=== PATIENT | male | born 1965 | race Caucasian/White ===

== ENCOUNTER 2017-07-29 08:32 | Emergency (ER) | payer MEDICARE, MEDICAID ==
[2017-07-29 08:44] VITALS: BP 151/92
--- NOTE | 2017-07-29 09:32 | RADIOLOGY REPORT (SQ) ---
EXAM DESCRIPTION: FOOT LEFT COMPLETE COMPLETED DATE/TIME: 07/29/2017 9:21 am REASON FOR STUDY: foot injury/pain COMPARISON: None. NUMBER OF VIEWS: Three views. TECHNIQUE: AP, lateral and oblique radiographic images acquired of the left foot. LIMITATIONS: None. FINDINGS: MINERALIZATION: Normal. BONES: No acute fracture or dislocation. Extensive hardware in the calcaneus. Degenerative changes in the midfoot with sclerosis and osteophytes. No worrisome bone lesions. JOINTS: No effusions. SOFT TISSUES: No soft tissue swelling. No foreign body. OTHER: No other significant finding. IMPRESSION: SURGICAL CHANGES IN THE CALCANEUS WITH HARDWARE. DEGENERATIVE CHANGES IN THE MIDFOOT. NO ACUTE FINDINGS. TECHNICAL DOCUMENTATION: JOB ID: [id number] [employer]- All Rights Reserved
[2017-07-29] MEDS ORDERED: HYDROCODONE/ACETAMINOPHEN 5-325 MG 6 TAB/DSPK PO PRN (09:45)
--- NOTE | 2017-07-29 09:45 | ER Document Report ---
ED Extremity Problem, Lower - General Chief Complaint: Foot Injury Stated Complaint: LEFT FOOT PAIN Time Seen by Provider: 07/29/17 08:56 Mode of Arrival: Ambulatory Information source: Patient Notes: Patient is a 52-year-old male with chronic left foot pain who presents to the ER today for increased left heel pain after going up and down ladders over the past couple of days to hang [employer] decorations. Patient is very concerned that he may have messed up the hardware in his left foot from an old calcaneus fracture. He states that it hurts all the time, but worse with weightbearing. He denies any numbness or tingling. TRAVEL OUTSIDE OF THE [place] IN LAST 30 DAYS: No - Related Data Allergies/Adverse Reactions: No Known Allergies Allergy (Verified 07/29/17 08:39) Home Medications: Current Home Medications Benztropine Mesylate 1 mg PO BID 07/29/17 [History] Diclofenac Sodium 75 mg PO DAILY 07/29/17 [History] Lisinopril 5 mg PO DAILY 07/29/17 [History] Risperidone [Risperdal] 3 mg PO BID 07/29/17 [History] Past Medical History - General Information source: Patient - Social History Smoking Status: Unknown if Ever Smoked Family History: Arthritis, Hypertension, Malignancy Patient has suicidal ideation: No Patient has homicidal ideation: No - Past Medical History Cardiac Medical History: Reports: Hx Hypertension Renal/ Medical History: Denies: Hx Peritoneal Dialysis Musculoskeltal Medical History: Reports Hx Musculoskeletal Deformity, Reports Hx Musculoskeletal Trauma Psychiatric Medical History: Reports: Hx Bipolar Disorder Past Surgical History: Reports: Hx Orthopedic Surgery - Back discectomy 2 many years ago - Immunizations Immunizations up to date: Yes Hx Diphtheria, Pertussis, Tetanus Vaccination: Yes Review of Systems - Review of Systems Constitutional: No symptoms reported EENT: No symptoms reported Cardiovascular: No symptoms reported Respiratory: No symptoms reported Gastrointestinal: No symptoms reported Genitourinary: No symptoms reported Male Genitourinary: No symptoms reported Musculoskeletal: See HPI Skin: No symptoms reported Hematologic/Lymphatic: No symptoms reported Neurological/Psychological: No symptoms reported Physical Exam - Vital signs Vitals: Temp Pulse Resp BP Pulse Ox 97.8 F 75 16 151/92 H 99 07/29/17 08:42 07/29/17 08:42 07/29/17 08:42 07/29/17 08:42 07/29/17 08:42 - Notes Notes: PHYSICAL EXAMINATION: GENERAL: Well-appearing and in no acute distress. HEAD: Atraumatic, normocephalic. EYES: Pupils equal round and reactive to light, extraocular movements intact, sclera anicteric, conjunctiva are normal. NECK: Normal range of motion, supple without lymphadenopathy LUNGS: CTAB and equal. No wheezes rales or rhonchi. HEART: Regular rate and rhythm without murmurs EXTREMITIES: old scar to lateral left calcaneous, tender to palpation, otherwise Normal range of motion, no pitting edema. No cyanosis. NEUROLOGICAL: Cranial nerves grossly intact. Normal sensory/motor exams. PSYCH: Normal mood, normal affect. SKIN: Warm, Dry, normal turgor, no rashes or lesions noted Course - Re-evaluation Re-evalutation: 07/29/17 12:03 X-ray of the left foot reveals old hardware intact, no acute pathology. Patient was advised to rest the foot. - Vital Signs Vital signs: Temp Pulse Resp BP Pulse Ox 97.8 F 75 16 151/92 H 99 07/29/17 08:42 07/29/17 08:42 07/29/17 08:42 07/29/17 08:42 07/29/17 08:42 Discharge - Discharge Clinical Impression: Left foot pain Condition: Stable Disposition: HOME, SELF-CARE Additional Instructions: Return immediately for any new or worsening symptoms. Follow up with primary care provider, call tomorrow to make followup appointment. Referrals: ALBINO BARRY PA-C [Primary Care Provider] - Follow up as needed
== END 2017-07-29 10:51 | disposition home or self-care (01) ==
LOC: ER 08:32
DX: M79.672 Pain in left foot (principal); G89.29 Other chronic pain; Z98.890 Other specified postprocedural states; I10 Essential (primary) hypertension
CPT/HCPCS: 99283; 73630; A9270

== ENCOUNTER 2018-10-08 09:24 | Emergency (ER) | payer MEDICARE, MEDICAID ==
[2018-10-08 09:42] VITALS: BP 160/92
--- NOTE | 2018-10-08 10:11 | ER Document Report ---
HPI - HPI Patient complains to provider of: Low back pain Time Seen by Provider: 10/08/18 09:39 Onset: Other - A few days Onset/Duration: Persistent Quality of pain: Achy Severity: Severe Pain Level: 4 Context: She presents emergency department with complaints of low back pain. Patient reports he has been helping a friend make a shed. He has been bending over cutting lifting. He reports his back started hurting him for a few days. Denie s urinary bowel incontinence or retention. Reports history of 2 back surgeries. Denies numbness and tingling. Denies fever vomiting diarrhea. He also reports he has history of hep C and is now currently taking a new medication. Denies IV drug use denies trauma. Associated Symptoms: None Exacerbated by: Denies Relieved by: Denies Similar symptoms previously: Yes Recently seen / treated by doctor: No Past Medical History - General Information source: Patient - Social History Smoking Status: Current Every Day Smoker Cigarette use (# per day): Yes Chew tobacco use (# tins/day): No Frequency of alcohol use: None Drug Abuse: None Occupation: They both Lives with: Family - mother Family History: Arthritis, Hypertension, Malignancy Patient has suicidal ideation: No Patient has homicidal ideation: No - Past Medical History Cardiac Medical History: Reports: Hx Hypertension Renal/ Medical History: Denies: Hx Peritoneal Dialysis Musculoskeletal Medical History: Reports Hx Musculoskeletal Deformity, Reports Hx Musculoskeletal Trauma Psychiatric Medical History: Reports: Hx Bipolar Disorder Past Surgical History: Reports: Hx Orthopedic Surgery - Back discectomy 2 many years ago - Immunizations Immunizations up to date: Yes Hx Diphtheria, Pertussis, Tetanus Vaccination: Yes Vertical Provider Document - CONSTITUTIONAL Agree With Documented VS: Yes Exam Limitations: No Limitations General Appearance: WD/WN, No Apparent Distress - INFECTION CONTROL TRAVEL OUTSIDE OF THE [place] IN LAST 30 DAYS: No - HEENT HEENT: Atraumatic, Normocephalic - NECK Neck: Normal Inspection, Supple. negative: Lymphadenopathy-Left, Lymphadenopathy-Right - RESPIRATORY Respiratory: Breath Sounds Normal, No Respiratory Distress - CARDIOVASCULAR Cardiovascular: Regular Rate - GI/ABDOMEN Gastrointestinal: Abdomen Soft, Abdomen Non-Tender - BACK Back: Normal Inspection - c/o of low midline tenderness. Good distal movement and sensation normal reflexes, no obvious deformity no erythema no swelling no warmth stands on toes rolls back on heels without problems ambulates without problems. negative: CVA Tenderness-Right, CVA Tenderness-Left - MUSCULOSKELETAL/EXTREMETIES Musculoskeletal/Extremeties: MAEW, FROM, Non-Tender - NEURO Level of Consciousness: Awake, Alert, Appropriate Motor/Sensory: No Motor Deficit - DERM Integumentary: Warm, Dry Adult Front & Back Diagram: 1 - Reports pain with movement walking. Course - Re-evaluation Re-evalutation: 10/08/18 10:14 Back pain appears to be related to patient's increased labor of helping friend make his shed. He has no neuro deficit good distal movement and sensation reflexes intact. Denies urine or bowel incontinence or retention. Patient is taking Mauyret for hepatitis C. Patient asked for Vicoprofen. I attempted to check the Identified system for prescription history. Without success. Due to patient's history of hepatitis C I will prescribe prescription of Percocet for back pain. He declines muscle relaxer. Patient was instructed to follow-up with his primary care provider in [place] for recheck within 5 days. Dictation of this chart was performed using voice recognition software; therefore, there may be some unintended grammatical errors. - Vital Signs Vital signs: Temp Pulse Resp BP Pulse Ox 97.5 F 65 16 160/92 H 100 10/08/18 09:36 10/08/18 09:36 10/08/18 09:36 10/08/18 09:36 10/08/18 09:36 Discharge - Discharge Clinical Impression: Low back pain Qualifiers: Chronicity: acute Back pain laterality: midline Sciatica presence: without sciatica Qualified Code(s): M54.5 - Low back pain Condition: Stable Disposition: HOME, SELF-CARE Instructions: Ice Packs ([facility]), Low Back Pain ([facility]), Oral Narcotic Medication ([facility]), Warm Packs ([facility]) Additional Instructions: *You have been evaluated for back pain *Take medication as prescribed *Rest/Ice- heat as directed *Follow up with a primary care provider within 5 DAYS for recheck *Return to ED for worsening condition, changes, needs Prescriptions: Oxycodone HCl/Acetaminophen [Percocet 5-325 mg Tablet] 1 tab PO ASDIR PRN #10 tablet PRN Reason: Forms: Elevated Blood Pressure Referrals: ALBINO BARRY PA-C [Primary Care Provider] - Follow up in 3-5 days
[2018-10-08] MEDS ORDERED: ERYTHROMYCIN 0.5% OPH OINT 1 GM UNIT DOSE OD ONE (10:50)
== END 2018-10-08 10:21 | disposition home or self-care (01) ==
LOC: ER 09:24
DX: M54.5 Low back pain (principal); B19.20 Unspecified viral hepatitis C without hepatic coma; I10 Essential (primary) hypertension; F17.210 Nicotine dependence, cigarettes, uncomplicated; Z98.890 Other specified postprocedural states
CPT/HCPCS: 99283

== ENCOUNTER 2018-12-22 15:03 | Emergency (ER) | payer MEDICARE, MEDICAID ==
[2018-12-22 15:11] VITALS: BP 129/72
[2018-12-22] MEDS ORDERED: ACETAMINOPHEN 325 MG TABLET PO ONE (16:04)
--- NOTE | 2018-12-22 16:06 | ER Document Report ---
HPI - HPI Patient complains to provider of: Leg pain Time Seen by Provider: 12/22/18 15:43 Onset: Yesterday Onset/Duration: Sudden Quality of pain: Sharp Pain Level: 5 Context: Patient states he was playing basketball yesterday went for a lay up. Patient states that he missed and after hitting the goal with his hand he fell backwards. Patient states that he pulled a muscle in his right groin. Patient complains of pain with ambulation. Patient denies falling. Patient complains of worse pain with movement and ambulation. Patient denies any testicular pain or swelling. Associated Symptoms: Other - Right groin pain Exacerbated by: Standing, Movement, Walking Relieved by: Denies Similar symptoms previously: No Recently seen / treated by doctor: No - ROS ROS below otherwise negative: Yes Systems Reviewed and Negative: Yes All other systems reviewed and negative - CONSTITUTIONAL Constitutional: DENIES: Fever - NEURO Neurology: DENIES: Weakness - GASTROINTESTINAL Gastrointestinal: DENIES: Abdominal Pain, Nausea, Patient vomiting - URINARY Urinary: DENIES: Dysuria - MUSCULOSKELETAL Musculoskeletal: REPORTS: Extremity pain - Right groin pain. DENIES: Back Pain - DERM Skin Color: Normal Skin Problems: None Past Medical History - General Information source: Patient - Social History Smoking Status: Current Every Day Smoker Smoking Education Provided: Yes Frequency of alcohol use: Occasional Drug Abuse: None Occupation: none Lives with: Family Family History: Arthritis, Hypertension, Malignancy - Past Medical History Cardiac Medical History: Reports: Hx Hypertension Renal/ Medical History: Denies: Hx Peritoneal Dialysis Musculoskeletal Medical History: Reports Hx Musculoskeletal Deformity, Reports Hx Musculoskeletal Trauma Psychiatric Medical History: Reports: Hx Bipolar Disorder Past Surgical History: Reports: Hx Orthopedic Surgery - Back discectomy 2 many years ago - Immunizations Immunizations up to date: Yes Hx Diphtheria, Pertussis, Tetanus Vaccination: Yes Vertical Provider Document - CONSTITUTIONAL Agree With Documented VS: Yes Exam Limitations: No Limitations General Appearance: WD/WN, No Apparent Distress - INFECTION CONTROL TRAVEL OUTSIDE OF THE [place] IN LAST 30 DAYS: No - HEENT HEENT: Atraumatic, Normocephalic - NECK Neck: Normal Inspection - RESPIRATORY Respiratory: Breath Sounds Normal, No Respiratory Distress - CARDIOVASCULAR Cardiovascular: Regular Rate, Regular Rhythm - GI/ABDOMEN Gastrointestinal: Abdomen Soft, Abdomen Non-Tender, No Organomegaly - BACK Back: Normal Inspection - MUSCULOSKELETAL/EXTREMETIES Musculoskeletal/Extremeties: MAEW, FROM, Tender - Patient with right groin tenderness to proximal aspect of medial right thigh. No palpable bulge. Patient with full range of motion. Tenderness with flexion and abduction - NEURO Level of Consciousness: Awake, Alert, Appropriate Motor/Sensory: No Motor Deficit - DERM Integumentary: Warm, Dry Course - Re-evaluation Re-evalutation: 12/22/18 16:05 Patient agreeable with plan to defer any x-rays at this time. Patient encouraged to follow-up with his primary doctor orthopedics for any persistent pain or problems. No concern for hernia at this time. Patient without any testicular tenderness. No concern for torsion. Good return precautions di scussed. - Vital Signs Vital signs: Temp Pulse Resp BP Pulse Ox 98.1 F 86 18 129/72 H 100 12/22/18 15:10 12/22/18 15:10 12/22/18 15:10 12/22/18 15:10 12/22/18 15:10 Discharge - Discharge Clinical Impression: Strain of right inguinal muscle Qualifiers: Encounter type: initial encounter Qualified Code(s): S39.013A - Strain of muscle, fascia and tendon of pelvis, initial encounter Condition: Stable Disposition: HOME, SELF-CARE Instructions: Inguinal Strain ([facility]), Muscle Relaxers ([facility]) Additional Instructions: Return immediately for any new or worsening symptoms Followup with your primary care provider, call tomorrow to make a followup appointment Weightbearing as tolerated Prescriptions: Metaxalone [Skelaxin 800 mg Tablet] 800 mg PO ASDIR PRN #15 tablet PRN Reason: Oxycodone HCl/Acetaminophen [Percocet 5-325 mg Tablet] 1 tab PO ASDIR PRN #8 tablet PRN Reason: Forms: Smoking Cessation Education Referrals: SHANNON MORENO MD [Primary Care Provider] - Follow up tomorrow
== END 2018-12-22 17:00 | disposition home or self-care (01) ==
LOC: ER 15:03
DX: S39.013A Strain of muscle, fascia and tendon of pelvis, initial encounter (principal); W17.89XA Other fall from one level to another, initial encounter; Y93.67 Activity, basketball; I10 Essential (primary) hypertension; F17.200 Nicotine dependence, unspecified, uncomplicated
CPT/HCPCS: 99283; A9270

== ENCOUNTER 2019-03-01 07:22 | Emergency (ER) | payer MEDICARE, MEDICAID ==
[2019-03-01 08:01] VITALS: BP 149/76
--- NOTE | 2019-03-01 08:10 | ER Document Report ---
ED Extremity Problem, Lower - General Chief Complaint: Foot Pain Stated Complaint: ANKLE PAIN Time Seen by Provider: 03/01/19 08:10 Primary Care Provider: SHANNON MORENO MD [Primary Care Provider] - Follow up as needed Mode of Arrival: Ambulatory Information source: Patient Notes: 54-year-old male with a history of hypertension and bipolar disorder, here for left heel pain x 3 days after he accidentally hit it on the floor next to his bed. hx of previous surgery on this heel several years ago requiring hardware. No numbness or tingling. Pain worse with movement. Better with rest. No pain anywhere else. No other complaints at this time. pt able to walk. hasn't sought care until now. requesting pain control. 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 TRAVEL OUTSIDE OF THE [place] IN LAST 30 DAYS: No - HPI Where: Home Onset/Duration: Sudden Quality of pain: Throbbing Severity: Mild Context: Barefoot, Direct blow Exacerbated by: Movement, Walking Relieved by: Rest - Related Data Allergies/Adverse Reactions: No Known Allergies Allergy (Verified 03/01/19 07:32) Past Medical History - General Information source: Patient - Social History Smoking Status: Current Every Day Smoker Frequency of alcohol use: Occasional Drug Abuse: None Family History: Arthritis, Hypertension, Malignancy Patient has suicidal ideation: No Patient has homicidal ideation: No - Past Medical History Cardiac Medical History: Reports: Hx Hypertension Pulmonary Medical History: Reports: None EENT Medical History: Reports: None Neurological Medical History: Reports: None Endocrine Medical History: Reports: None Renal/ Medical History: Reports: None. Denies: Hx Peritoneal Dialysis Malignancy Medical History: Reports None GI Medical History: Reports: None Musculoskeletal Medical History: Reports Hx Musculoskeletal Deformity, Reports Hx Musculoskeletal Trauma Skin Medical History: Reports None Psychiatric Medical History: Reports: Hx Bipolar Disorder Traumatic Medical History: Reports: Hx Fractures Past Surgical History: Reports: Hx Orthopedic Surgery - Back discectomy 2 many years ago along with left heel surgery 20+ yearsago - Immunizations Immunizations up to date: Yes Hx Diphtheria, Pertussis, Tetanus Vaccination: Yes Review of Systems - Review of Systems Constitutional: No symptoms reported EENT: No symptoms reported Cardiovascular: No symptoms reported Respiratory: No symptoms reported Gastrointestinal: No symptoms reported Genitourinary: No symptoms reported Musculoskeletal: Joint pain, Joint swelling, Ankle swelling. denies: Back pain, Neck pain Skin: No symptoms reported Hematologic/Lymphatic: No symptoms reported Neurological/Psychological: No symptoms reported -: Yes All other systems reviewed and negative Physical Exam - Vital signs Vitals: Temp Pulse Resp BP Pulse Ox 98.0 F 72 16 149/76 H 97 03/01/19 08:01 03/01/19 08:01 03/01/19 08:01 03/01/19 08:01 03/01/19 08:01 Notes: >>>> PHYSICAL_EXAM: GENERAL_APPEARANCE: alert, cooperative, no obvious discomfort. Pleasant middle aged white male, smiling, speaking in full sentences, easily sitting up, in no sign of pain or resp distress, no one is with him VITALS: reviewed, see vital signs table. HEAD: no_swelling\tenderness on the head, normocephalic, atraumatic, no daniel signs. no raccoon eyes. NECK: supple, no_neck_tenderness. full rom. full strength. no sign of central cord syndrome HEART: RRR LUNGS: CTAB BACK: no_back_tenderness EXTREMITIES: good pulses in all extremities, left foot: left heel laterally has a well healed scar that is mildly ttp. area has no erythema, minimal to no swelling, and no_abrasions\lacerations. there is no other ttp or swelling on the extremity. slight decreased rom at baseline as pt isn't able to fully invert or ananth ankle since his prior ankle surgery 20+yrs ago but he states this is unchanged from his baseline and full strength. no other swelling or ttp. Normal gait. brisk cap refill. 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 no shortening or rotation of the limbs or other obvious deformities to suggest trauma. no foot drop. neg miller sign. ne g enamorado squeeze. SKIN: warm, dry, good_color. no rash. no overlying skin changes to otherwise sugggest trauma NEURO: cerebellar function intact, motor_intact and sensory_intact in injured_extremity. Course - Re-evaluation Re-evalutation: 03/01/19 08:59 Patient here for left heel pain. His left ankle x-ray was negative per radiology and reviewed by myself. He responded well to Toradol here. Advised symptomatic care. Tylenol for any pain. Follow-up with PCP in 1 to 2 days. Return for any worsening symptoms. Patient understands and agrees with plan. Vital signs stable. Neuro nonfocal. rice therapy. On reexam, pt improved with tx listed. feels much better and would like to go home. vss. well appearing. tolerating po. 03/01/19 09:42 - Vital Signs Vital signs: Temp Pulse Resp BP Pulse Ox 98.0 F 72 16 149/76 H 97 03/01/19 08:01 03/01/19 08:01 03/01/19 08:01 03/01/19 08:01 03/01/19 08:01 - Diagnostic Test Radiology reviewed: Image reviewed, Reports reviewed Radiology results interpreted by me: 03/01/19 09:42 Ankle X-Ray 03/01/19 08:25 IMPRESSION: No significant interval change. Discharge - Discharge Clinical Impression: Injury of left heel Qualifiers: Encounter type: initial encounter Qualified Code(s): S99.922A - Unspecified injury of left foot, initial encounter Condition: Stable Disposition: HOME, SELF-CARE Instructions: Exercises for the Foot Muscles ([facility]) Additional Instructions: Follow-up with PCP 1 to 2 days. Return for any worsening symptoms. tylenol for any pain. ice, elevate, rest your foot. Referrals: SHANNON MORENO MD [Primary Care Provider] - Follow up as needed
[2019-03-01] MEDS ORDERED: KETOROLAC TROMETHAMINE 60 MG/2 ML SDV IM ONE (08:26)
--- NOTE | 2019-03-01 09:41 | RADIOLOGY REPORT (SQ) ---
EXAM DESCRIPTION: ANKLE LEFT COMPLETE COMPLETED DATE/TIME: 03/01/2019 8:49 am REASON FOR STUDY: heel pain, prior surgery, hit heel on floor COMPARISON: Left foot 07/29/2017. NUMBER OF VIEWS: Three views. TECHNIQUE: AP, lateral, and oblique radiographic images acquired of the left ankle. LIMITATIONS: None. FINDINGS: MINERALIZATION: Normal. BONES: Old healed fracture deformity of calcaneus with previous internal fixation with plates and scr ews. 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 Degenerative change at the talonavicular joint. Plantar calcaneal bone spur. Enthesophyte for A chilles attachment. Posttraumatic exostosis posterior inferior calcaneus JOINTS: No effusions. . SOFT TISSUES: No soft tissue swelling. No foreign body. IMPRESSION: No significant interval change. TECHNICAL DOCUMENTATION: JOB ID: [id number] [employer]- All Rights Reserved Reading location - IP/workstation name: [email or web address]
== END 2019-03-01 09:55 | disposition home or self-care (01) ==
LOC: ER 07:22
DX: S99.922A Unspecified injury of left foot, initial encounter (principal); X58.XXXA Exposure to other specified factors, initial encounter; F17.200 Nicotine dependence, unspecified, uncomplicated; I10 Essential (primary) hypertension
CPT/HCPCS: 99283; 96372; 73610; J1885

== ENCOUNTER 2019-05-23 10:07 | Emergency (ER) | payer MEDICARE, MEDICAID ==
[2019-05-23 10:10] VITALS: BP 119/69
--- NOTE | 2019-05-23 11:02 | ER Document Report ---
HPI - HPI Time Seen by Provider: 05/23/19 10:55 Pain Level: 5 Notes: Patient is a 54-year-old male with no significant past medical history who presents complaining of possible infection to his right lower buttock that is been present for 3 days. Patient is not sure if he got bit by an insect, but believes he has an infection in this area. He has not noticed any drainage. Denies drug allergies. No history of MRSA or IV drug abuse. Pain does not radiate. Patient states that he does not have any pain at the rectum or in the crease of his buttock near the top. Denies any headache, fever, URI, sore throat, chest pain, palpitations, syncope, cough, shortness of breath, wheeze, dyspnea, abdominal pain, nausea/vomiting/diarrhea, urinary retention, dysuria, hematuria. No tick bite. - ROS Systems Reviewed and Negative: Yes All other systems reviewed and negative - CONSTITUTIONAL Constitutional: DENIES: Fever, Chills - EENT EENT: DENIES: Sore Throat, Ear Pain, Eye problems - NEURO Neurology: DENIES: Headache, Weakness, Vision blurred, Dizzinesss / Vertigo - CARDIOVASCULAR Cardiovascular: DENIES: Chest pain - RESPIRATORY Respiratory: DENIES: Trouble Breathing, Coughing - GASTROINTESTINAL Gastrointestinal: DENIES: Abdominal Pain, Black / Bloody Stools - URINARY Urinary: DENIES: Dysuria, Urgency, Frequency - REPRODUCTIVE Reproductive: DENIES: : - MUSCULOSKELETAL Musculoskeletal: DENIES: Extremity pain Past Medical History - Social History Smoking Status: Current Every Day Smoker Chew tobacco use (# tins/day): No Frequency of alcohol use: None Drug Abuse: None Family History: Arthritis, Hypertension, Malignancy Patient has suicidal ideation: No Patient has homicidal ideation: No - Past Medical History Cardiac Medical History: Reports: Hx Hypertension Renal/ Medical History: Denies: Hx Peritoneal Dialysis Musculoskeletal Medical History: Reports Hx Musculoskeletal Deformity, Reports Hx Musculoskeletal Trauma Psychiatric Medical History: Reports: Hx Bipolar Disorder Traumatic Medical History: Reports: Hx Fractures Past Surgical History: Reports: Hx Orthopedic Surgery - Back discectomy 2 many years ago along with left heel surgery 20+ yearsago - Immunizations Immunizations up to date: Yes Hx Diphtheria, Pertussis, Tetanus Vaccination: Yes Vertical Provider Document - CONSTITUTIONAL Agree With Documented VS: Yes Notes: PHYSICAL EXAMINATION: GENERAL: Well-appearing, well-nourished and in no acute distress. LUNGS: Breath sounds clear to auscultation bilaterally and equal. No wheezes rales or rhonchi. HEART: Regular rate and rhythm without murmurs, rubs, gallops. ABDOMEN: Soft, nontender, nondistended abdomen. No guarding, no rebound. Normal bowel sounds present. No CVA tenderness bilaterally. buttock: No tenderness near anus/rectum. There is an erythemic, indurated area approx 2cm to the rt inferior buttock that is tender. No streaks or discharge. No erythema migrans. Musculoskeletal: FROM to passive/active. Strength 5+/5. Extremities: No cyanosis, clubbing, or edema b/l. Peripheral pulses 2+. Capillary refill less than 3 seconds. NEUROLOGICAL: Normal speech, normal gait. Normal sensory, motor exams PSYCH: Normal mood, normal affect. SKIN: see above - INFECTION CONTROL TRAVEL OUTSIDE OF THE [place] IN LAST 30 DAYS: No Course - Re-evaluation Re-evalutation: 05/23/19 Patient is an afebrile, well-hydrated, 54-year-old male who presents to the emergency department with an abscess to her right buttock needing incision and drainage. Vitals are acceptable without significant tachycardia, tachypnea, or hypoxia. PE is otherwise unremarkable. Patient is nontoxic-appearing and is tolerating p.o. without difficulty. Incision and drainage was performed without any complications and packing was placed. Patient tolerated procedure well. Wound dressing was placed and wound instructions reviewed. Wound culture was obtained. No further labs or imaging warranted. We will send him home with a prescription for Keflex and Bactrim. Low suspicion for any sepsis, meningitis, SJS, or other systemic emergent condition at this time. Patient to monitor symptoms for any acute changes and seek medical attention if so. Recheck with your PCM in 2-3 days. Consider consult with the general surgeon. Return to the ED with any worsening/concerning symptoms as reviewed. Patient is in agreement. - Vital Signs Vital signs: Temp Pulse Resp BP Pulse Ox 97.6 F 85 16 119/69 100 05/23/19 10:05/23/19 10:05/23/19 10:05/23/19 10:05/23/19 10:09 Procedures - Incision and Drainage Right buttock Type: Simple Anesthetic type: 1% Lidocaine mL's of anesthetic: 5 Blade size: 11 I&D procedure: Iodoform packing placed, Sterile dressing applied, Other - Chlorhexidine/saline Incision Method: Incision made by scalpel Amount/type of drainage: Moderate purulent Discharge - Discharge Clinical Impression: Abscess Condition: Stable Disposition: HOME, SELF-CARE Instructions: Cephalexin ([facility]), Post Incision and Drainage, Trimethoprim-Sulfa ([facility]) Additional Instructions: Do not shower or bathe for 24 hours. After 24 hours you may shower but no submersion of the wound under water. Keep the original dressing on the wound for 24 hours unless the drainage soaks through. Change the dressing daily thereafter and use a small amount of triple antibiotic ointment over the open wound. See your PCM in 2-3 days for recheck and continue direction for wound packing. Monitor for any signs of worsening pain or redness, streaks, and/or fever. Return to the ED if noticing any of the above symptoms or as needed. Take medications as directed. Prescriptions: Tramadol HCl [Ultram 50 mg Tablet] 50 mg PO Q4HP PRN #15 tab PRN Reason: Sulfamethoxazole/Trimethoprim [Bactrim Ds Tablet] 1 each PO BID #20 tablet Cephalexin Monohydrate [Keflex 500 mg Capsule] 500 mg PO TID #30 capsule Forms: Smoking Cessation Education Referrals: SHANNON MORENO MD [Primary Care Provider] - Follow up as needed
[2019-05-23] MEDS ORDERED: LIDOCAINE 1% INJ-PF (10 MG/ML) 30 ML SDV INJ ONE (11:07)
== END 2019-05-23 11:40 | disposition home or self-care (01) ==
LOC: ER 10:07
PROC: 0H98XZZ Drainage of Buttock Skin, External Approach (ICD-10-PCS; principal; 2019-05-23)
DX: L02.31 Cutaneous abscess of buttock (principal); K62.89 Other specified diseases of anus and rectum; F17.200 Nicotine dependence, unspecified, uncomplicated; I10 Essential (primary) hypertension
CPT/HCPCS: 99283; 87070; 87205; 87075; 87077; 87186; 10060; A6266; J3490